=== PATIENT | female | born 1990 | race Caucasian/White ===

== ENCOUNTER 2018-05-31 13:53 | Inpatient (IN) | payer BC ==
[~2018-05-31] VITALS: Ht 162.6 cm; Wt 100.0 kg
[~2018-05-31 13:53] MED LIST: FLAGYL500 MG PO; LACRI-LUBE1 OIN OD; MAXZIDE 50 MG-71 TAB PO; MOTRIN 600600 MG/TAB PO; PERCOCET 325 MG1 TA2 PO; PRENATAL1 TA1 PO; SENOKOT S 50 MG1 TAB PO; birth control
[2018-07-29] VITALS (39 sets, daily range): BP systolic 95–138; BP diastolic 50–78; PULSE 64–100; TEMP 97.2–98.2
[2018-07-29] MEDS ORDERED: CALCIUM CARBON650 M2 (07:18)
[2018-07-29 08:18] LABS: BASO # 0.1 (0.0-0.2); BASO % 0.5 % (0.0-2.0); EOS # 0.1 (0.0-0.7); EOS % 1.1 % (0-4.0); GRAN # 7.5 (1.4-6.5); GRAN % 70.4 % (42.2-75.2); HEMATOCRIT 36.6 % (37.0-47.0); HEMOGLOBIN 12.6 g/dl (12.5-16.0); LYMPH # 2.2 (1.2-3.4); LYMPH % 21.2 % (20.0-51.0); MEAN CELL VOLUME 87 fl (80.0-100.0); MEAN CORPUSCULAR HEMOGLOBIN 30 pg (27.0-31.0); MEAN CORPUSCULAR HGB CONC 34 g/dl (33.0-37.0); MEAN PLATELET VOLUME 10.6 fl (7.4-10.4); MONO # 0.6 (0.1-0.6); PLATELET COUNT 269 K/mm3 (130-400); RED BLOOD COUNT 4.19 M/mm3 (4.10-5.30); REDCELL DISTRIBUTION WIDTH-CV 12.8 % (11.5-14.5)
[2018-07-29] MEDS ORDERED: PERCOCET 325 MG1 TA2 PO (14:17)
[2018-07-29] MEDS ORDERED: MOTRIN 800800 MG/TAB PO (14:17)
[2018-07-30 02:00] VITALS: BP 103/53; PULSE 81; TEMP 98
[2018-07-30 07:33] VITALS: BP 112/62; PULSE 77; TEMP 98.3
[2018-07-30 12:30] VITALS: BP 110/65; PULSE 72; TEMP 97.5
== END 2018-07-30 16:00 | disposition home or self-care (01) | DRG 775 ==
LOC: LDR 07-29 06:46 → OB 07-29 16:50 → LDRO 08-03 13:53 → EDSTATUS 08-03 14:28
PROVIDERS: Obstetrics & Gynecology
PROC: 10907ZC Drainage of Amniotic Fluid, Therapeutic from Products of Conception, Via Natural or Artificial Opening (ICD-10-PCS; principal; 2018-07-29)
PROC: 10E0XZZ Delivery of Products of Conception, External Approach (ICD-10-PCS; 2018-07-29)
PROC: 3E033VJ Introduction of Other Hormone into Peripheral Vein, Percutaneous Approach (ICD-10-PCS; 2018-07-29)
PROC: 0HQ9XZZ Repair Perineum Skin, External Approach (ICD-10-PCS; 2018-07-29)
DX: O75.89 Other specified complications of labor and delivery (principal); Z3A.39 39 weeks gestation of pregnancy; Z37.0 Single live birth; E28.2 Polycystic ovarian syndrome; O99.214 Obesity complicating childbirth; K21.9 Gastro-esophageal reflux disease without esophagitis; O70.0 First degree perineal laceration during delivery
CPT/HCPCS: J2590; J7120

== ENCOUNTER → 2019-08-06 | Outpatient (CLI) | payer BC ==
[~2019-08-06] MED LIST changes: +CALCIUM CARBON650 M2; +MOTRIN 800800 MG/TAB PO
== END ==
LOC: MC.RAD 12:49
DX: N63.42 Unspecified lump in left breast, subareolar (principal); N60.42 Mammary duct ectasia of left breast